=== PATIENT | male | born 1995 | race Caucasian/White ===

== ENCOUNTER 2018-05-18 10:55 | Day surgery (SDC) | payer OTHER ==
[~2018-05-18 10:55] MED LIST: CEFAZOLIN 1 GM INJ
[2018-05-18] MEDS ORDERED: BUPIVACAINE 0.25% (MPF) 30 ML INJ (12:21)
[2018-05-18] MEDS ORDERED: PROPOFOL 20 ML (12:34)
[2018-05-18] MEDS ORDERED: ROCURONIUM 50 MG INJ (12:38)
[2018-05-18] MEDS: BUPIVACAINE 0.5% (SDV) 30 ML INJ (13:07)
[2018-05-18] MEDS ORDERED: NEOMYC/POLYMYX/BACIT 30 GM OINT (13:13)
[2018-05-18] MEDS ORDERED: DEXAMETHASONE 4 MG/ML 5 ML INJ (13:18)
[2018-05-18] MEDS ORDERED: ONDANSETRON 4 MG INJ (13:19)
[2018-05-18] MEDS ORDERED: GLYCOPYRROLATE 0.4 MG INJ (13:25)
[2018-05-18] MEDS ORDERED: NEOSTIGMINE 3 MG/3 ML SYRINGE (13:25)
[2018-05-18] MEDS ORDERED: DIPHENHYDRAMINE 50 MG INJ IV (14:00)
[2018-05-18] MEDS ORDERED: KETOROLAC 30 MG INJ IV (14:00)
[2018-05-18] MEDS ORDERED: ONDANSETRON 4 MG INJ IV (14:00)
[2018-05-18] MEDS ORDERED: METOCLOPRAMIDE 10 MG INJ IV (14:00)
[2018-05-18] MEDS ORDERED: LABETALOL HCL 20MG INJ IV (14:00)
[2018-05-18] MEDS ORDERED: FENTAnyl 50 MCG/ML VIAL IV ×3 (14:00)
[2018-05-18] MEDS ORDERED: HYDROCODONE/APAP (5/325) TAB PO (14:00)
[2018-05-18] MEDS ORDERED: hydrALAzine 20 MG INJ IV (14:00)
[2018-05-18] MEDS ORDERED: HYDROmorphONE 1 MG/5 ML IV SYRINGE IV ×3 (14:00)
[2018-05-18] MEDS ORDERED: ALBUTEROL 0.083% (NEB) 2.5 MG/3 ML AMP HHN (14:00)
[2018-05-18] MEDS ORDERED: MEPERIDINE 25 MG INJ IV (14:00)
[2018-05-18] MEDS ORDERED: EPHEDrine SULFATE 50 MG/5 ML SYG IV (14:00)
[2018-05-18] MEDS ORDERED: OXYCODONE/ACETAMINOPHEN (5/325) TAB PO ×2 (14:00)
== END 2018-05-18 15:30 | disposition home or self-care (01) ==
LOC: SDS 10:55
DX: N50.89 Other specified disorders of the male genital organs (principal)
CPT/HCPCS: 54640